=== PATIENT | male | born 1990 | race Caucasian/White ===

== ENCOUNTER 2018-03-24 11:00 | Emergency (ER) | payer OTHER ==
[2018-03-24 11:07] VITALS: BP 152/89
--- NOTE | 2018-03-24 12:04 | ED Physician Documentation ---
PD HPI NVD - Stated complaint Stated Complaint: ABD PX VOMITING NAUSEOUS - Chief complaint Chief Complaint: Abd Pain - History obtained from History obtained from: Patient - History of Present Illness Timing - onset: Last night Timing - duration: Hours (8-10) Timing - details: Abrupt onset, Still present (it is past the peak of symptoms with less nausea/vomiting, but still some diarrhea. Able to take some water this morning. Feeling generally weak.) Associated symptoms: Abdominal pain, Loss of appetite. No: Fever, Near syncope / syncope Contributing factors: Bad food (he says several friends have same symptoms overnight, and were at a game [employer] with pot luck snacks yesterday. No friends had been sick prior days.). No: Sick contact Improved by: No: Eating, Vomiting Worsened by: Eating Similar symptoms before: Has not had sx before Recently seen: Not recently seen Review of Systems Constitutional: reports: Chills, Myalgias. denies: Fever Nose: denies: Rhinorrhea / runny nose, Congestion Throat: denies: Sore throat Respiratory: denies: Cough GI: reports: Abdominal Pain, Nausea, Vomiting, Diarrhea. denies: Hematemesis, Bloody / black stool Neurologic: reports: Generalized weakness. denies: Near syncope, Altered mental status, Headache PD PAST MEDICAL HISTORY - Past Medical History Past Medical History: No Cardiovascular: None Respiratory: None Neuro: None Endocrine/Autoimmune: None GI: None : None HEENT: None Psych: None Musculoskeletal: None Derm: None - Past Surgical History Past Surgical History: No - Present Medications Home Medications: Ambulatory Orders Medication Instructions Recorded Confirmed Ibuprofen 600 mg PO Q6HR PRN #30 tablet 08/22/14 diazePAM [Valium] 5 mg PO TID PRN #15 tablet 08/22/14 predniSONE [Deltasone] 40 mg PO DAILY 5 Days tablet 08/22/14 Diphenoxylate/Atropine [Lomotil] 1 - 2 each PO QID PRN #16 tablet 03/24/18 Naproxen 500 mg PO BID #20 tablet 03/24/18 Ondansetron Odt [Zofran] 4 mg TL Q6H PRN #10 tablet 03/24/18 Tramadol HCl 50 mg PO Q6H PRN #10 tablet 03/24/18 - Allergies Allergies/Adverse Reactions: Allergies Allergy/AdvReac Type Severity Reaction Status Date / Time No Known Drug Allergies Allergy Verified 03/24/18 11:07 - Social History Does the pt smoke?: No Smoking Status: Never smoker Does the pt drink ETOH?: Yes ETOH Use: Beer, Liquor Does the pt have substance abuse?: No - Immunizations Immunizations are current?: Yes - POLST Patient has POLST: No PD ED PE NORMAL - Vitals Vital signs reviewed: Yes - General General: Alert and oriented X 3, Well developed/nourished - HEENT HEENT: PERRL (nonicteric), Pharynx benign - Neck Neck: Supple, no meningeal sign, No adenopathy - Cardiac Cardiac: RRR (tachycardic), No murmur - Respiratory Respiratory: Clear bilaterally - Abdomen Abdomen: Normal bowel sounds, Soft, Non tender, Non distended - Rectal Rectal: Deferred - Back Back: No CVA TTP - Derm Derm: Normal color, Warm and dry Results - Vitals Vitals: Vital Signs - 24 hr 03/24/18 11:04 Temperature 36 C L Heart Rate 110 H Respiratory 16 Rate Blood Pressure 152/89 H O2 Saturation 100 Oxygen O2 Source Room air PD MEDICAL DECISION MAKING - ED course Complexity details: considered differential (sounds like toxin mediated food poisoning given abruptness and with several people all sick together overnight. He is feeling past peak of the symptoms and did not feel he needed IV, so given oral meds and note for work. ), d/w patient Departure - Departure Disposition: 01 Home, Self Care Clinical Impression: Nausea vomiting and diarrhea Food poisoning Qualifiers: Encounter type: initial encounter Injury intent: accidental or unintentional Qualified Code(s): T62.91XA - Toxic effect of unspecified noxious substance eaten as food, accidental (unintentional), initial encounter Condition: Stable Record reviewed to determine appropriate education?: Yes Instructions: ED Food Poison Or Gastroenteritis Follow-Up: JERRY SPARKS MD [Primary Care Provider] - Prescriptions: Diphenoxylate/Atropine [Lomotil] 1 - 2 each PO QID PRN #16 tablet PRN Reason: Diarrhea Naproxen 500 mg PO BID #20 tablet Ondansetron Odt [Zofran] 4 mg TL Q6H PRN #10 tablet PRN Reason: Nausea / Vomiting Tramadol HCl 50 mg PO Q6H PRN #10 tablet PRN Reason: Pain Comments: This sounds likely to be a acute food poisoning. Typically this is self-limited and would mainly treat the symptoms. Ondansetron if needed for nausea. Lomotil for diarrhea. Tylenol or ibuprofen if needed for pains and cramps. Forms: Activity restrictions Discharge Date/Time: 03/24/18 13:06
[2018-03-24] MEDS ORDERED: IBUPROFEN 600 MG TABLET PO STA (12:22)
[2018-03-24] MEDS ORDERED: ONDANSETRON ODT 4 MG TABLET TL STA (12:22)
[2018-03-24] MEDS ORDERED: DIPHENOX/ATROPINE 2.5/0.025 MG TABLET PO STA (12:22)
[2018-03-24] MEDS ORDERED: ACETAMINOPHEN 325 MG TABLET PO STA (12:23)
== END 2018-03-24 13:06 | disposition home or self-care (01) ==
LOC: ED 11:00
DX: R11.2 Nausea with vomiting, unspecified (principal); R19.7 Diarrhea, unspecified; T62.91XA Toxic effect of unspecified noxious substance eaten as food, accidental (unintentional), initial encounter
CPT/HCPCS: 99283; A9270; Q0162

== ENCOUNTER 2018-04-10 12:11 | Outpatient (CLI) | payer OTHER ==
--- NOTE | 2018-04-10 16:06 | MRI Report ---
Reason: PAIN IN RIGHT KNEE Procedure Date: 04/10/2018 Accession Number: [id number] / [id number] Procedure: MRI - Knee RT W/O CPT Code: FULL RESULT: EXAM: RIGHT KNEE MRI WITHOUT CONTRAST EXAM DATE: 04/10/2018 12:34 PM. CLINICAL HISTORY: PAIN IN RIGHT KNEE. COMPARISON: None. TECHNIQUE: Multiplanar, multisequence T1-weighted and fluid-sensitive sequences of the knee without contrast. Other: None. FINDINGS: Bones: No fractures or subluxations. No marrow edema. No bone lesions. Articular Cartilage: Unremarkable. Medial Meniscus: The medial meniscus is intact. Lateral Meniscus: The lateral meniscus is intact. Cruciate Ligaments: The anterior and posterior cruciate ligaments are intact. Collateral Ligaments: The medial collateral and lateral collateral ligamentous structures are intact. Tendons: The quadriceps, patellar, semimembranosus, and popliteus tendons are unremarkable. Musculature: No edema or fatty atrophy. Other: There is a small joint effusion.. There is a small popliteal cyst. No loose bodies. The medial and lateral retinacula are intact. The subcutaneous tissues and fat pads are unremarkable. IMPRESSION: 1. Small popliteal cyst. Small joint effusion. 2. No visible fracture. Menisci and ligaments appear normal. [facility]CULOSKE[facility] SECTION
== END 2018-04-10 12:12 | disposition home or self-care (01) ==
LOC: DI 12:11
PROVIDERS: ATTEND Family Medicine
DX: M71.21 Synovial cyst of popliteal space [Baker], right knee (principal); M25.461 Effusion, right knee

== ENCOUNTER 2018-05-23 12:43 | Outpatient (CLI) | payer OTHER ==
[2018-05-23] MEDS ORDERED: GADOBUTROL 10 MMOL/10 ML VIAL ONE (14:14)
[2018-05-23] MEDS ORDERED: GADOBUTROL 10 MMOL/10 ML VIAL IVP ONE (14:22)
--- NOTE | 2018-05-25 09:10 | MRI Report ---
Reason: PAIN IN RIGHT THIGH Procedure Date: 05/23/2018 Accession Number: [id number] / [id number] Procedure: MRI - Femur/Thigh RT W/WO CPT Code: FULL RESULT: EXAM: RIGHT FEMUR/THIGH MRI WITHOUT AND WITH CONTRAST EXAM DATE: 05/23/2018 02:41 PM. CLINICAL HISTORY: PAIN IN RIGHT THIGH. COMPARISON: KNEE RT W/O 04/10/2018 12:34 PM. TECHNIQUE: Multiplanar, multisequence T1-weighted and fluid-sensitive sequences of the thigh before and after administration of intravenous contrast. IV contrast: 8.5 mL Gadavist given IV, no reaction. Other: None. FINDINGS: Bones: No fractures or subluxations. No marrow edema or abnormal enhancement. No bone lesions. Joint Spaces: Visualized portions of the hip and knee joints are unremarkable on these large [id number] images. Tendons: The visualized hamstring origins are unremarkable. Musculature: The region marked with an MR marker located at the central aspect of the vastus lateralis corresponds to the region of heterogeneity on T1 and T2, primarily fluid intensity on fat saturation sequences, showing arborization and vascular channels with contrast material. There are arterial and draining venous channels present which arise from the deep femoral artery and vein. Overall size of this lesion is 3.9 x 2.6 cm transversely, extending for a 7.6 cm cephalocaudal extent. Series 301 image 34, series 62772, series 1101 image 37. Some mild interspersed fat intensity is present. No other similar features seen elsewhere in the thigh. Please note that the previous study from 04/10/2018 had a smaller field of view and did not include this area of concern. Other: The visualized sciatic and femoral nerves are unremarkable. The subcutaneous tissues are unremarkable. No abscess or cellulitis. IMPRESSION: There is a vascular lesion in the area of concern in the right vastus lateralis with arborization of vascular channels, arterial and draining venous channels arise from the deep femoral artery and vein. This is 3.9 x 2.6 cm transversely extending for a 7.6 cm cephalocaudal extent. Small amount of interspersed fatty intensity also seen. 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 Because of its imaging features, neoplasm is considered to be unlikely. [facility]CULOSKE[facility] RADIOLOGY SECTION
== END 2018-05-23 12:44 | disposition home or self-care (01) ==
LOC: DI 12:43
PROVIDERS: ATTEND Orthopaedic Surgery
DX: M79.651 Pain in right thigh (principal); I99.8 Other disorder of circulatory system
CPT/HCPCS: 73720; A9585